=== PATIENT | female | born 1960 | race Caucasian/White ===

== ENCOUNTER 2018-07-31 12:53 | Outpatient (CLI) | payer BC, SELFPAY ==
[2018-07-31 13:08] VITALS: BP 120/79; PULSE 68; RESP 18; TEMP 36.7; O2SAT 100
[2018-07-31 13:41] VITALS: BP 119/79; PULSE 68; RESP 11; O2SAT 100
--- NOTE | 2018-07-31 13:41 | PDOC.PAIN ---
Pain Clinic Procedure Note Current Active Problems Problem Status Onset Intercostal neuralgia Acute Left 9th Intercostal nerve block SONYA LANDRY [facility] a Left 9th Intercostal Nerve block. COMMENTS: 3/10 pain to the left chest prior to the procedure. She was previously evaluated at our clinic at [facility] [place]. She has a history of vertebroplasty at [facility]. Patient was interviewed and the medical record reviewed. There were no medical, pharmacologic, radiographic or other structural contraindications to attempting fluoroscopically guided left 9th intercostal nerve block. Risks and expected side effects as well as potential benefit of the procedure were reviewed and voiced concerns addressed. The printed consent form was signed and witnessed. Standard time-out procedure was performed. Patient was placed in the prone position on the fluoroscopy table and automated blood pressure cuff and pulse oximeter applied. Fluoroscopy was utilized to identify the left 9th rib. A skin dimple was made for the needle insertion site. A Chlorhexadine prep was carried out, and sterile drapes were applied. Local anesthesia was achieved in the skin and subcutaneous tissues. A 25 gauge skin needle was then inserted, advanced with fluoroscopic guidance to the left 9th rib 5 cm lateral to midline. The needle was then walked off the inferior portion of the rib. After negative aspiration, 1 ml of Omnipaque 240 was injected confirming position in A/P and lateral views. This showed a good spread of dye medically and laterally under the rib. There was no vascular update with contrast injection under continuous fluoroscopy. 40 mg of Depomedrol was injected, followed by 2 ml of 1% Xylocaine flush for the nerve root block, as well. There was no unusual discomfort expressed.The needle was withdrawn. The patient tolerated the procedure well. A Band-Aid was applied. Vital signs were stable throughout the procedure and were as recorded in nursing records. If given, dosages of intravenous drugs for anxiolysis and analgesia were documented in nursing records. Follow up plans and appointments were discussed. Post procedure instruction was given as documented in nursing records and patient was discharged in the care of an identified local owner operator truck driver. COMMENTS: The patient had 100% pain relief with the procedure. This procedure can be completed up to 3 times per 12 months if needed. CC: Edita James
--- NOTE | 2018-07-31 13:42 | DI.RAD_ITS ---
SYMPTOMS/DIAGNOSIS: LEFT UPPER QUADRANT PAIN PAIN CLINIC THORACIC SPINE: Fluoroscopy Time: 30.2 sec, 3.83 mGy. C-arm fluoroscopy was provided for guidance with Pain Clinic injection. Please see procedure note for details.
[2018-07-31] MEDS: Omnipaque 240 MG/ML 50 ML BTL IJ (13:44)
[2018-07-31] MEDS: methylPREDNISolone ACETATE 40 MG/ML VIAL IJ (13:44)
--- NOTE | 2018-07-31 13:48 | PDOC.PAIN_ITS ---
Pain Clinic Procedure Note Current Active Problems Problem Status Onset Intercostal neuralgia Acute Left 9th Intercostal nerve block SONYA LANDRY has been referred to the [facility] for a Left 9th Intercostal Nerve block. COMMENTS: 3/10 pain to the left chest prior to the procedure. She was previ ously evaluated [place] [facility] [place] She has a history of vertebroplasty at T[facility]. Patient was interviewed and the medical record reviewed. There were no medical, pharmacologic, radiographic or other structural contraindications to attempting fluoroscopically guided left 9th intercostal nerve block. Risks and expected side effects as well as potential benefit of the procedure were reviewed and voiced concerns addressed. The printed consent form was signed and witnessed. Standard time-out procedure was performed. Patient was placed in the prone position on the fluoroscopy table and automated blood pressure cuff and pulse oximeter applied. Fluoroscopy was utilized to identify the left 9th rib. A skin dimple was made for the needle insertion site. A Chlorhexadine prep was carried out, and sterile drapes were applied. Local anesthesia was achieved in the skin and subcutaneous tissues. A 25 gauge skin needle was then inserted, advanced with fluoroscopic guidance to the left 9th rib 5 cm lateral to midline. The needle was then walked off the inferior portion of the rib. After negative aspiration, 1 ml of Omnipaque 240 was injected confirming position in A/P and lateral views. This showed a good spread of dye medically and laterally under the rib. There was no vascular update with contrast injection under continuous fluoroscopy. 40 mg of Depomedrol was injected, followed by 2 ml of 1% Xylocaine flush for the nerve root block, as well. There was no unusual discomfort expressed.The needle was withdrawn. The patient tolerated the procedure well. A Band-Aid was applied. Vital signs were stable throughout the procedure and were as recorded in nursing records. If given, dosages of intravenous drugs for anxiolysis and analgesia were documented in nursing records. Follow up plans and appointments were discussed. Post procedure instruction was given as documented in nursing records and patient was discharged in the care of an identified regional tanker truck driver. COMMENTS: The patient had 100% pain relief with the procedure. This procedure can be completed up to 3 times per 12 months if needed. CC: Edita James
[2018-07-31 13:53] VITALS: RESP 16
== END 2018-07-31 13:13 ==
PROVIDERS: PCP Internal Medicine; Visit Provider Preventive Medicine Occupational Medicine
DX: G58.0 Intercostal neuropathy (principal)
CPT/HCPCS: 64420; 77002; 72070; J1030; Q9967